=== PATIENT | female | born 1970 | race Caucasian/White ===

== ENCOUNTER → 2017-10-09 | Outpatient (CLI) | payer OTHER ==
[~2017-10-09] MED LIST: LEVO100T95 PO; LOR5/325 PO; METH-543 PO; SUMA25TA26 PO
== END ==
LOC: LAB 08:05
PROVIDERS: ATTEND Emergency Medicine
DX: E03.9 Hypothyroidism, unspecified (principal)
CPT/HCPCS: 36415; 84443

== ENCOUNTER → 2017-12-02 | Outpatient (CLI) | payer OTHER ==
[~2017-12-02] MED LIST changes: +LEVO88TA43 PO; +LEVO88TA45 PO
--- NOTE | 2017-12-03 10:27 | RADIOLOGY IMAGING REPORT ---
FACILITY: [facility] PATIENT NAME: CLAUDE MATA : [id number] MR: [id number] V: [id number] EXAM DATE: [id number] ORDERING PHYSICIAN: MANUEL TOVAR TECHNOLOGIST: Allison Hickey PROCEDURE:BILATERAL DIGITAL SCREENING MAMMOGRAM WITH CAD ASSISTED INTERPRETATION & 3D TOMOSYNTHESIS COMPARISON:Prior mammograms 11/27/16, 11/26/15, 11/24/14, 10/21/13, 08/05/12, 07/28/12 INDICATIONS:SCREENING FINDINGS: Moderately heterogeneous fibroglandular tissue is seen throughout the breasts. The parenchymal pattern has remained stable allowing for difference in mammographic technique & patient positioning. There is no evidence of malignant appearing mass, malignant appearing calcifications or other secondary sign of malignancy in either breast. DIAGNOSTIC CATEGORY 2--BENIGN FINDING. RECOMMENDATIONS: ROUTINE MAMMOGRAM AND CLINICAL EVALUATION. IMPRESSION: BIRADS 2: Benign finding No significant abnormality is seen Dictated by: Radha Lima M.D. on 12/02/2017 at 15:51 Transcribed by: [email or web address] on 12/02/2017 at 16:02 Approved by: Radha Lima M.D. on 12/03/2017 at 10:26 [facility]
== END ==
LOC: MAMO 02:22
PROVIDERS: ATTEND Emergency Medicine
DX: Z12.31 Encounter for screening mammogram for malignant neoplasm of breast (principal)
CPT/HCPCS: 77063; 77067

== ENCOUNTER → 2018-12-13 | Outpatient (CLI) | payer OTHER ==
[~2018-12-13] MED LIST changes: +LEVO50TA86 PO; +LEVO75TA73 PO
--- NOTE | 2018-12-14 08:26 | RADIOLOGY IMAGING REPORT ---
FACILITY: [facility] PATIENT NAME: CLAUDE MATA : [id number] MR: [id number] V: [id number] EXAM DATE: ORDERING PHYSICIAN: MANUEL TOVAR TECHNOLOGIST: Allison Hickey PROCEDURE:BILATERAL DIGITAL SCREENING MAMMOGRAM WITH CAD ASSISTED INTERPRETATION & 3D TOMOSYNTHESIS COMPARISON:Prior mammograms 12/02/17, 11/27/16, 11/26/15, 11/24/14, 10/21/13, 08/05/12. INDICATIONS:SCREENING FINDINGS: The breasts are heterogeneously dense which can obscure small masses. The parenchymal pattern has remained stable allowing for difference in mammographic technique & patient positioning. DIAGNOSTIC CATEGORY 1--NEGATIVE. RECOMMENDATIONS: ROUTINE MAMMOGRAM AND CLINICAL EVALUATION. IMPRESSION: BIRADS 1: Negative. No significant abnormality is seen. Dictated by: Radha Lima M.D. on 12/13/2018 at 17:52 Transcribed by: [email or web address] on 12/14/2018 at 8:21 Approved by: Radha Lima M.D. on 12/14/2018 at 8:25 [facility]
== END ==
LOC: MAMO 00:57
PROVIDERS: ATTEND Emergency Medicine
DX: Z12.31 Encounter for screening mammogram for malignant neoplasm of breast (principal)
CPT/HCPCS: 77063; 77067